=== PATIENT | male | born 1990 | race Caucasian/White ===

== ENCOUNTER 2020-05-04 10:51 | Emergency (ER) | payer MEDICAID, SELFPAY ==
[2020-05-04 11:45] VITALS: BP 136/89; PULSE 86; RESP 19; TEMP 36.8; O2SAT 98; BMI 49.3
--- NOTE | 2020-05-04 11:54 | HMH.EDUTC ---
[facility] [place]ression: Exposure to COVID-19 virus Disposition: Home, Self-Care Condition on Discharge: Good Instructions: Preventing the Spread of Coronavirus Discharge Instructions Additional Instructions: Please isolate yourself until COVID19 test results are received. Referrals: PCP,No [Primary Care Provider] - Time of Disposition: 11:56 Medical Decision Making - Júnior Inquiry Pt receiving controlled substance: No Vital Signs: 05/04/20 11:45 Temperature 98.2 F Temperature Source Oral Pulse Rate [Right Brachial] 86 Respiratory Rate 19 Blood Pressure [Right Arm] 136/89 Blood Pressure Mean [Right Arm] 104 Blood Pressure Source [Right Arm] Automatic Cuff Blood Pressure Position [Right Arm] Sitting 02 Sat by Pulse Oximetry 98 Oxygen Delivery Method Room Air - Lab Data Lab results reviewed: Yes: I reviewed the patient's lab results. Orders (Tests/Meds): ORDERS Category Date Time Status Covid-19 Nasal PCR ([place]) Routine Lab 05/04/20 11:45 Ordered [facility] [place] Stated complaint: Covid Test for work Time Seen by Provider: 05/04/20 11:54 Mode of Arrival: Ambulatory Source of Information: Patient Limitations: No Limitations Description of Symptoms (Recalled from Triage Doc. by RN): PATIENT C/O SORE THROAT AND LOSS OF TASTE X 2 DAYS HEENT Symptoms (Recalled from RN notes): Yes Resp Symptoms (Recalled from RN notes): No Skin Symptoms (Recalled from RN notes): No MS Symptoms (Recalled from RN notes): No Functional Status (Recalled from RN notes): WNL - History of Present Illness Provider Complaint: Sore throat, loss of taste X 2 days. No fever. Denies ear pain, congestion, cough, nausea, vomiting, diarrhea. Denies fever. Work has requested COVID19 testing. Onset (ago): day(s) (2) Relieving factors: none Exacerbating factors: none Associated symptoms: denies other symptoms Treatments prior to arrival: none - Related Data Home Medications Medication Instructions Recorded Confirmed No Known Home Medications 07/10/18 07/10/18 Allergies Allergy/AdvReac Type Severity Reaction Status Date / Time acetaminophen [From Lortab] Allergy Mild Verified 07/10/18 11:36 hydrocodone [From Lortab] Allergy Mild Verified 07/10/18 11:36 From Cephalexin Monohydrate Allergy Unknown Uncoded 06/30/17 14:27 PCN (penicillin) Allergy Unknown Uncoded 06/30/17 14:27 SULFA (sulfonamide) Allergy Unknown Uncoded 06/30/17 14:27 Tetracycline Allergy Unknown Uncoded 06/30/17 14:27 - Worker's Comp Is this a Worker's Comp case?: No [place] History - Hepatitis A Screen Drug use history?: No High risk sexual behaviors?: No History of sexually transmitted infection?: No Currently employed?: No Childcare worker?: No Do you have indoor plumbing?: Yes Do you have electricity?: Yes Attestation statement:: This patient has been screened for Hepatitis A risk factors. I have reviewed the patient's past medical history: Yes Medical History: Reports:: Asthma Laterality Cases: Bilateral: Myringotomy (Ear Tubes), Tonsillectomy Other Surgeries: Yes: Appendectomy, Other Amputation: No Fractures: No Comment: Right ankle sx, Tumor removed from neck - Social History Smoking Status: Current every day smoker Tobacco Type: cigarettes # Packs/Day (cigarettes): 1 Alcohol Intake: never Substance Use Type: denies use Occupational Status: other Housing: house Household Members: family Family Hx:: Diabetes, Cancer, Stroke, Heart Attack, Hypertension Comment: COPD ROS Obtained: Yes All systems reviewed & no additional complaints - ENT Ears, Nose, Mouth, and Throat: Reports pain with swallowing, Reports other (loss of taste) Physical Exam - General General appearance: alert, in no apparent distress - Head Head exam: atraumatic, normocephalic, normal inspection - Eye Eye exam: Present: normal appearance, PERRL, EOMI - ENT ENT exam: Present: normal exam, normal oropharynx, mucous m
[2020-05-04 11:56] LABS: UTC Strep Screen (Rapid) Negative (Negative)
[2020-05-04 11:58] VITALS: BP 136/89; PULSE 86; RESP 19; TEMP 36.8; O2SAT 98
[2020-05-05 15:24] LABS: Covid-19 Nasal PCR Sendout Lex Not Detected
== END 2020-05-04 12:00 | disposition home or self-care (01) ==
PROVIDERS: Emergency Provider Physician Assistant
DX: Z20.828 Contact with and (suspected) exposure to other viral communicable diseases (principal); J45.909 Unspecified asthma, uncomplicated; F17.210 Nicotine dependence, cigarettes, uncomplicated; Z88.0 Allergy status to penicillin; Z88.2 Allergy status to sulfonamides; Z88.5 Allergy status to narcotic agent
CPT/HCPCS: 87880; 99201; U0004

== ENCOUNTER → 2021-07-07 16:24 | Outpatient (CLI) | payer BC, SELFPAY | PROVIDERS: Visit Provider Nurse Practitioner Family | DX: U07.1 COVID-19 (principal) | CPT/HCPCS: C9803; U0003; U0005 ==

== ENCOUNTER 2021-09-14 18:21 | Emergency (ER) | payer BC, SELFPAY ==
[2021-09-14 18:25] VITALS: BP 132/84; PULSE 127; RESP 18; TEMP 38.1; O2SAT 96; BMI 47.7
[2021-09-14 18:52] LABS: UTC Influenza A Antigen Negative (Negative); UTC Strep Screen (Rapid) Negative (Negative)
[2021-09-14 18:53] LABS: UTC Influenza B Antigen Negative (Negative)
--- NOTE | 2021-09-14 18:54 | HMH.EDUTC ---
[facility] [place] Clinical Impression: Upper respiratory infection Qualifiers: URI type: unspecified viral URI Qualified Code(s): J06.9 - Acute upper respiratory infection, unspecified Disposition: Home, Self-Care Condition on Discharge: Good Instructions: DI for Viral Upper Respiratory Infection -- Adult Additional Instructions: No sign of a bacterial infection. Likely viral. Viruses can take 7-14 days to run their course. Nasal saline and bulb syringe or nose Maureen to remove nasal drainage to help with nasal congestion. Hard to eat, drink, sleep with nasal congestion so important to keep this cleaned out. Monitor temp. Tylenol or Motrin as needed for pain or fever Encourage fluids, water, Gatorade, Powerade, Pedialyte if infant/toddler/child Warm salt water gargles Warm fluids Sore throat lozenges Sleep elevated Humidifier/vaporizer Follow-up immediately for new or worsening symptoms or no noticeable improvement over the next 48-72 hours. Prescriptions: Brompheniramine/Pseudoephed/Dm [Bromfed Dm Cough Syrup] 10 ml PO Q46H PRN 14 Days #100 ml PRN Reason: Cough Transmission Status: Pending to [id number] Referrals: Provider,Referral, [Primary Care Provider] - Forms: Work/School Release Time of Disposition: 18:57 Medical Decision Making - Jún[place] Inquiry Pt receiving controlled substance: No Vital Signs: 09/14/21 18:25 Temperature 100.5 F H Temperature Source Oral Pulse Rate [Left Brachial] 127 H Respiratory Rate 18 Blood Pressure [Left Arm] 132/84 Blood Pressure Mean [Left Arm] 100 Blood Pressure Source [Left Arm] Automatic Cuff Blood Pressure Position [Left Arm] Sitting 02 Sat by Pulse Oximetry 96 Oxygen Delivery Method Room Air - Lab Data Lab Results 09/14/21 18:37: Influenza Type A Ag Negative, Influenza Type B Ag Negative 09/14/21 18:37: Strep Scn Rapid Clinic Negative Orders (Tests/Meds): ORDERS Category Date Time Status Strep Screen Confirmation Stat Micro 09/14/21 18:37 Received [facility] [place] - General Chief complaint: Urgent Treatment Center Stated complaint: sore throat,congestion, V/D, [place] Time Seen by Provider: 09/14/21 18:55 Mode of Arrival: Ambulatory Source of Information: Patient Limitations: No Limitations Description of Symptoms (Recalled from Triage Doc. by RN): PATIENT C/O DIARRHEA, VOMITING, HEAD CONGESTION, BODY ACHES, CHILLS, SORE THROAT, AND EAR ACHE X 5 DAYS HEENT Symptoms (Recalled from RN notes): Yes Resp Symptoms (Recalled from RN notes): No Skin Symptoms (Recalled from RN notes): No MS Symptoms (Recalled from RN notes): No Functional Status (Recalled from RN notes): WNL - History of Present Illness Provider Complaint: 30 yr old male presents for body aches,chills,fever, nasal congestion and sinus pressure for 3 days had covid the end of jun - Related Data Previous Rx's Medication Instructions Recorded Brompheniramine/Pseudoephed/Dm 10 ml PO Q46H PRN 14 Days #100 ml 09/14/21 [Bromfed Dm Cough Syrup] Allergies Allergy/AdvReac Type Severity Reaction Status Date / Time acetaminophen [From Lortab] Allergy Mild Verified 07/10/18 11:36 hydrocodone [From Lortab] Allergy Mild Verified 07/10/18 11:36 cephalexin [From Keflex] Allergy Verified 09/14/21 18:43 Penicillins Allergy Verified 09/14/21 18:43 Sulfa (Sulfonamide Allergy Verified 09/14/21 18:43 Antibiotics) tetracycline Allergy Verified 09/14/21 18:43 - Worker's Comp Is this a Worker's Comp case?: No [facility] History - Hepatitis A Screen Drug use history?: No High risk sexual behaviors?: No History of sexually transmitted infection?: No Currently employed?: No Childcare worker?: No Do you have indoor plumbing?: Yes Do you have electricity?: Yes Attestation statement:: This patient has been screened for Hepatitis A risk factors. I have reviewed the patient's past medical history: Yes Medical History: Reports:: Asthma Laterality Cases: [place]
[2021-09-14 18:55] VITALS: BP 132/84; PULSE 127; RESP 18; TEMP 38.1; O2SAT 96
== END 2021-09-14 19:00 | disposition home or self-care (01) ==
PROVIDERS: Emergency Provider Nurse Practitioner Family
DX: J06.9 Acute upper respiratory infection, unspecified (principal); J02.9 Acute pharyngitis, unspecified; R11.2 Nausea with vomiting, unspecified; R19.7 Diarrhea, unspecified; R51.9 Headache, unspecified; H92.09 Otalgia, unspecified ear; Z86.16 Personal history of COVID-19; J44.9 Chronic obstructive pulmonary disease, unspecified; F17.210 Nicotine dependence, cigarettes, uncomplicated; Z88.6 Allergy status to analgesic agent; Z88.1 Allergy status to other antibiotic agents; Z88.3 Allergy status to other anti-infective agents; Z88.2 Allergy status to sulfonamides; Z88.8 Allergy status to other drugs, medicaments and biological substances; Z82.49 Family history of ischemic heart disease and other diseases of the circulatory system; Z80.9 Family history of malignant neoplasm, unspecified; Z83.3 Family history of diabetes mellitus
CPT/HCPCS: 87804; 87880; 99213; G0463